=== PATIENT | male | born 1945 | race Two or more races ===

== ENCOUNTER 2022-08-15 19:48 | Emergency (ER) | payer MEDICAID ==
[~2022-08-15] VITALS: Ht 149.9 cm; Wt 62.8 kg
[2022-08-15 20:46] LABS: BASOPHILS % 0.6 % (0.0-2.0); EOSINOPHILS % 1.9 % (0.0-5.0); HEMATOCRIT. 37.4 % (42.0-52.0); HEMOGLOBIN. 12.6 g/dL (14.0-18.0); LYMPHOCYTES % 25.6 % (20.0-50.0); MEAN CORPUSCULAR HEMOGLOBIN 28.4 pg (28.0-32.0); MEAN CORPUSCULAR VOLUME 84.5 fL (80.0-94.0); MEAN PLATELET VOLUME 8.6 fl (7.4-10.4); MONOCYTES % 7.6 % (2.0-8.0); NEUTROPHILS % 64.3 % (40.0-76.0); PLATELET 198 x1000/uL (130-400); RED BLOOD CELL COUNT 4.42 mill/uL (4.7-6.1); RED CELL DISTRIBUTION WIDTH 13.8 % (11.6-14.6)
[2022-08-15 20:50] LABS: CHLORIDE 103 mEq/L (98-107)
[2022-08-15 21:38] LABS: CLARITY URINE CLEAR (CLEAR); COLOR URINE YELLOW (YELLOW); KETONES URINE NEGATIVE (NEGATIVE); LEUKOCYTE ESTERASE URINE TRACE (NEGATIVE); NITRITE URINE POSITIVE (NEGATIVE); OCCULT BLOOD URINE TRACE (NEGATIVE); PH URINE 7.5 (4.5-8.0); PROTEIN URINE NEGATIVE (NEGATIVE); SPECIFIC GRAVITY URINE 1.011 (1.005-1.030)
[2022-08-15 23:00] VITALS: BP 120/60
[2022-08-16] MEDS ORDERED: ONDA4TAB11 PO (00:09)
[2022-08-16] MEDS ORDERED: NITR-87 MT (00:09)
== END 2022-08-16 01:15 | disposition home or self-care (01) ==
LOC: ER 20:09
DX: N39.0 Urinary tract infection, site not specified (principal); I10 Essential (primary) hypertension; Z86.73 Personal history of transient ischemic attack (TIA), and cerebral infarction without residual deficits
CPT/HCPCS: 36415; 71045; 80053; 81003; 84484; 85025; 93005; 99285